=== PATIENT | male | born 1935 | race Caucasian/White ===

== ENCOUNTER 2017-06-20 18:27 | Emergency (ER) | payer OTHER ==
[~2017-06-20] VITALS: Ht 182.9 cm; Wt 60.5 kg
[2017-06-20] MEDS ORDERED: TIOT185 IH (18:33)
[2017-06-20] MEDS ORDERED: ASPI81 PO (18:33)
[2017-06-20] MEDS ORDERED: LISI-660 PO (18:33)
[2017-06-20 18:47] LABS: BASOPHILS # (AUTO) 0.02 K/uL (0.00-0.20); BASOPHILS % (AUTO) 0.3 % (0.0-2.0); EOSINOPHILS # (AUTO) 0.03 K/uL (0.00-0.70); HEMATOCRIT 39.4 % (41-53); HEMOGLOBIN 12.8 g/dL (13.5-17.5); LYMPHOCYTES # (AUTO) 0.6 K/uL (1.0-4.8); LYMPHOCYTES % (AUTO) 6.7 % (22.0-44.0); MEAN CORPUSCULAR HEMOGLOBIN 30.8 pg (26.0-34.0); MEAN CORPUSCULAR HGB CONC 32.5 G/dL (31.0-37.0); MEAN CORPUSCULAR VOLUME 95 fL (80-100); MONOCYTES # (AUTO) 0.4 K/uL (0.1-1.0); MONOCYTES % (AUTO) 4.9 % (2.0-9.0); NEUTROPHILS # (AUTO) 7.9 K/uL (1.8-7.7); PLATELET COUNT (AUTO) 204 K/uL (150-450); RED BLOOD CELL COUNT(AUTO) 4.16 MIL/uL (4.50-5.90)
[2017-06-20 18:50] LABS: NEUTROPHILS % (AUTO) 87.8 % (40.0-70.0)
[2017-06-20 19:00] LABS: PROTHROMBIN TIME 10.6 SEC (9.4-11.6)
[2017-06-20 19:02] LABS: ANION GAP 5 mmol/L (8-16); CALCIUM, TOTAL 8.7 mg/dL (8.8-10.5); CARBON DIOXIDE 30 mmol/L (22-29); CHLORIDE 106 mmol/L (98-107); CREATININE 1.17 mg/dL (0.60-1.30); GLOMERULAR FILTR. RATE CALC 60 mL/min (>60); GLUCOSE,RANDOM 134 mg/dL (70-110); POTASSIUM 4.5 mmol/L (3.5-5.1); SODIUM SERUM 141 mmol/L (136-145); UREA NITROGEN, BLOOD 27 mg/dL (7-18)
[2017-06-20 19:09] LABS: ALANINE AMINOTRANSFERASE 21 U/L (12-78); ALKALINE PHOSPHATASE 76 U/L (46-116); ASPARTATE AMINOTRANSFERASE 17 U/L (15-37); BILIRUBIN,TOTAL 0.4 mg/dL (0.1-1.0); CREATINE KINASE, TOTAL 36 U/L (39-308); TOTAL PROTEIN, SERUM 6.9 g/dL (6.4-8.2)
[2017-06-20] MEDS ORDERED: LORazepam 2 MG/ML VIAL ONE (19:15)
[2017-06-20] MEDS ORDERED: WATER FOR INJECTION STERILE IV ONE ×2 (19:45)
[2017-06-20] MEDS ORDERED: ALTEPLASE PER STROKE PROTOCOL CLINICAL ONE (19:45)
[2017-06-20] MEDS ORDERED: ALTEPLASE IV ONE ×2 (19:45)
[2017-06-20] MEDS ORDERED: DILTIAZEM HCL 5 MG/ML 5 ML VIAL IVP ONE ×2 (19:50→21:00)
[2017-06-20] MEDS ORDERED: DILTIAZEM HCL 125 MG in DEXTROSE 5%-WATER 100 ML IV PRN (20:52)
[2017-06-20] MEDS: METOPROLOL TARTRATE 5 MG/5 ML VIAL IVP ONE ×2 (22:38→23:01)
[2017-06-21 04:03] VITALS: BP 129/81
== END 2017-06-21 04:45 | disposition short-term general hospital (02) ==
LOC: EMS 18:28
DX: I63.9 Cerebral infarction, unspecified (principal); I48.91 Unspecified atrial fibrillation; G81.91 Hemiplegia, unspecified affecting right dominant side; F17.210 Nicotine dependence, cigarettes, uncomplicated; J44.9 Chronic obstructive pulmonary disease, unspecified; I10 Essential (primary) hypertension; Z86.73 Personal history of transient ischemic attack (TIA), and cerebral infarction without residual deficits
CPT/HCPCS: 37195; 70450; 70496; 71045; 80053; 82550; 84484; 85025; 85610; 85730; 93005; 96365; 96366; 96374; 96375; 99291; J2060; J2997; J3490 ×3; J7060